=== PATIENT | female | born 1955 | race American Indian/Alaskan Native ===

== ENCOUNTER 2023-10-31 17:09 | Inpatient (IN) ==
[2023-10-31] MEDS ORDERED: IOPAMIDOL 100 ML BOTTLE IV ONE (17:24)
[2023-10-31] MEDS: IPRATROPIUM/ALBUTEROL 3 ML AMPUL.NEB NEB ONE ×3 (17:25→21:00)
[2023-10-31] MEDS: methylPREDNISolone SOD SUCC 125 MG/2 ML VIAL IV ONE (17:32)
[2023-10-31 18:33] LABS: ABG Methemoglobin 0.1 % (0.4-1.5); Total Hemoglobin 15.3 gm/Dl (12.0-15.0); VBG Base Excess -3 (-2-3); VBG HCO3 21.8 mmol/L (24.0-28.0); VBG Oxygen Saturation 90.7 % (40.0-70.0); VBG PCO2 36.6 mmHg (41.0-51.0); VBG PH 7.39 U (7.32-7.42); VBG PO2 69.7 mmHg (25.0-40.0); VBG Total CO2 22.9 mmol/L (25.0-29.0)
[2023-10-31 18:37] LABS: Basophils # (Auto) 0.01 K/mcL (0.00-0.30); Basophils % (Auto) 0.1 % (0.0-2.0); Eosinophils # (Auto) 0 K/mcL (0.00-0.70); Eosinophils % (Auto) 0 % (0.0-7.0); Hematocrit 41.6 % (34.1-44.9); Hemoglobin 14.2 g/dL (11.2-15.7); Lymphocytes # (Auto) 0.85 K/mcL (1.50-4.80); Lymphocytes % (Auto) 9.8 % (15.5-49.0); Mean Corpuscular HGB Conc 34.1 g/dL (31.0-36.0); Mean Platelet Volume 8.4 fL (8.8-12.5); Monocytes # (Auto) 0.57 K/mcL (0.10-0.90); Monocytes % (Auto) 6.6 % (1.0-12.0); Neutrophils % (Auto) 83.3 % (38.0-78.0); Platelet Count 333 K/mcL (140-440); RBC 4.16 M/mcL (3.59-5.38); Red Cell Distribution Width 13.4 % (11.5-14.5); WBC 8.7 K/mcL (4.5-11.0)
[2023-10-31] MEDS: HYDROmorphone 0.5 MG/0.5 ML SYRINGE IV ONE (18:46)
[2023-10-31 18:58] LABS: ALT/SGPT 34 U/L (<40); AST/SGOT 36 U/L (<32); Albumin 4.5 gm/dL (3.2-5.2); Albumin/Globulin Ratio 1.4 (1.0-2.3); Alkaline Phosphatase 65 U/L (39-117); Bilirubin,Total 0.5 mg/dL (0.1-1.0); Blood Urea Nitrogen 19 mg/dL (8-23); Calcium 9.5 mg/dL (8.6-10.4); Carbon Dioxide 20 mmol/L (22-30); Chloride 100 mmol/L (96-108); Globulin 3.2 gm/dL (2.2-3.7); Glomerular Filtration Rate 90; Glucose 141 mg/dL (70-105)
[2023-10-31] MEDS: cefTRIAXone 2 GM in DEXTROSE 5% IN WATER 50 ML IV ONE (20:29)
[2023-10-31] MEDS: AZITHROMYCIN 500 MG in DEXTROSE 5% IN WATER 250 ML IV ONE (21:01)
[2023-10-31] MEDS ORDERED: SENNOSIDES 1 TABLET PO PRN (21:56)
[2023-10-31] MEDS ORDERED: POTASSIUM CHLORIDE 20 MEQ TABLET PO PRN (21:56)
[2023-10-31] MEDS ORDERED: ONDANSETRON 4 MG/2 ML VIAL IV PRN (21:56)
[2023-10-31] MEDS ORDERED: POLYETHYLENE GLYCOL 3350 17 GM PACKET PO PRN (21:56)
[2023-10-31] MEDS ORDERED: MAGNESIUM SULFATE 2 GM/50 ML BAG IV PRN (21:56)
[2023-10-31] MEDS ORDERED: POTASSIUM CHLORIDE 40 MEQ in DEXTROSE 5% IN WATER 500 ML IV PRN (21:56)
[2023-10-31] MEDS: BUDESONIDE 0.5 MG/2 ML AMPUL.NEB NEB SCH (22:20)
[2023-10-31] MEDS: IPRATROPIUM/ALBUTEROL 3 ML AMPUL.NEB NEB PRN (22:20)
[2023-10-31] MEDS: POTASSIUM CHLORIDE 20 MEQ TABLET PO PRN (22:30)
[2023-10-31] MEDS: BUDESONIDE 0.5 MG/2 ML AMPUL.NEB ONE (22:34)
[2023-10-31] MEDS: methylPREDNISolone SOD SUCC 125 MG/2 ML VIAL IV SCH (22:45)
[2023-10-31] MEDS: ACETAMINOPHEN 325 MG TABLET PO PRN (22:45)
[2023-10-31] MEDS: HYDROcodone/APAP 5/325MG TABLET PO PRN (23:11)
[2023-11-01] MEDS: HYDROcodone/APAP 5/325MG TABLET PO ONE (00:02)
[2023-11-01] MEDS: IPRATROPIUM/ALBUTEROL 3 ML AMPUL.NEB NEB SCH (01:06)
[2023-11-01] MEDS: LORazepam 2 MG/ML VIAL IV PRN (02:02)
[2023-11-01] MEDS ORDERED: DEXTROSE 31 GM ORAL.SUSP PO PRN (07:41)
[2023-11-01] MEDS ORDERED: DEXTROSE 50% 50 ML VIAL IV PRN (07:41)
[2023-11-01] MEDS: HYDROcodone/APAP 5/325MG TABLET PO PRN (08:20)
[2023-11-01] MEDS: GABAPENTIN 300 MG CAPSULE PO SCH (08:20)
[2023-11-01] MEDS: LOSARTAN 50 MG TABLET PO SCH (08:21)
[2023-11-01] MEDS: HYDROXYCHLOROQUINE 200 MG TABLET PO SCH (08:21)
[2023-11-01] MEDS: DOCUSATE SODIUM 100 MG CAPSULE PO SCH (08:21)
[2023-11-01] MEDS: cefTRIAXone 1 GM VIAL IV SCH (08:22)
[2023-11-01] MEDS: ENOXAPARIN 40 MG/0.4 ML SYRINGE SQ SCH (08:22)
[2023-11-01] MEDS: azaTHIOprine 50 MG TABLET PO SCH (08:22)
[2023-11-01] MEDS: AZITHROMYCIN 500 MG in DEXTROSE 5% IN WATER 250 ML IV SCH (08:26)
[2023-11-01] MEDS: NEUTRA PHOS 1 PACKET PO SCH (09:57)
[2023-11-01] MEDS: PHOSPHORUS 250 MG TABLET PO SCH (09:57)
[2023-11-01 11:35] LABS: ALT/SGPT 24 U/L (<40); AST/SGOT 28 U/L (<32); Albumin 4.1 gm/dL (3.2-5.2); Albumin/Globulin Ratio 1.4 (1.0-2.3); Alkaline Phosphatase 59 U/L (39-117); Anion Gap 12.9 (8.0-16.0); Bilirubin,Direct < 0.2 mg/dL (0-0.3); Bilirubin,Total 0.3 mg/dL (0.1-1.0); Blood Urea Nitrogen 18 mg/dL (8-23); Carbon Dioxide 23 mmol/L (22-30); Chloride 102 mmol/L (96-108); Globulin 2.9 gm/dL (2.2-3.7); Glomerular Filtration Rate 93; Glucose 209 mg/dL (70-105); Lactate Dehydrogenase 255 U/L (135-225); Triglycerides 84 mg/dL (<150); Uric Acid 4.5 mg/dL (2.5-8.0)
[2023-11-01] MEDS: INSULIN LISPRO 1 UNIT/0.01 ML UNIT SQ SCH (11:51)
[2023-11-01] MEDS: methylPREDNISolone SOD SUCC 40 MG/ML VIAL IV SCH (14:13)
[2023-11-02 06:57] LABS: ALT/SGPT 30 U/L (<40); AST/SGOT 33 U/L (<32); Albumin/Globulin Ratio 1.5 (1.0-2.3); Alkaline Phosphatase 66 U/L (39-117); Bilirubin,Direct < 0.2 mg/dL (0-0.3); Bilirubin,Total 0.5 mg/dL (0.1-1.0); Blood Urea Nitrogen 20 mg/dL (8-23); Calcium 8.7 mg/dL (8.6-10.4); Carbon Dioxide 24 mmol/L (22-30); Chloride 103 mmol/L (96-108); Globulin 2.7 gm/dL (2.2-3.7); Glomerular Filtration Rate 100; Glucose 126 mg/dL (70-105); Lactate Dehydrogenase 245 U/L (135-225); Phosphorous 3.4 mg/dL (2.5-4.5); Triglycerides 141 mg/dL (<150); Uric Acid 3.3 mg/dL (2.5-8.0)
[2023-11-02] MEDS: AZITHROMYCIN 250 MG TABLET PO SCH (08:37)
[2023-11-02] MEDS: predniSONE 20 MG TABLET PO SCH (08:37)
[2023-11-02] MEDS: LEVALBUTEROL 1.25 MG/3 ML AMPUL.NEB NEB PRN (09:14)
[2023-11-02] MEDS ORDERED: ALBUTEROL SULFATE 60 PUFF INHALER INH PRN (10:25)
[2023-11-02] MEDS ORDERED: BENZONATATE 100 MG CAPSULE PO PRN (10:25)
[2023-11-02] MEDS ORDERED: HYDROcodone/APAP (PP) 5/325MG TABLET (#4) PO PRN (10:25)
[2023-11-02] MEDS: guaiFENesin/DEXTROMETHORPHAN 5ML UD CUP PO PRN (11:44)
[2023-11-02] MEDS: CALCIUM (OYSTER SHELL) 500 MG TABLET PO SCH (12:41)
[2023-11-02] MEDS: NYSTATIN CRM 1 DOSE TUBE TOPICAL SCH (20:42)
[2023-11-03 06:47] LABS: Basophils # (Auto) 0 K/mcL (0.00-0.30); Basophils % (Auto) 0 % (0.0-2.0); Eosinophils # (Auto) 0.02 K/mcL (0.00-0.70); Eosinophils % (Auto) 0.4 % (0.0-7.0); Hematocrit 39.4 % (34.1-44.9); Lymphocytes # (Auto) 2.23 K/mcL (1.50-4.80); Lymphocytes % (Auto) 39.1 % (15.5-49.0); Mean Cell Volume 103.4 fL (80.0-100.0); Mean Platelet Volume 8.7 fL (8.8-12.5); Monocytes # (Auto) 0.53 K/mcL (0.10-0.90); Monocytes % (Auto) 9.3 % (1.0-12.0); Neutrophils % (Auto) 50.5 % (38.0-78.0); Platelet Count 314 K/mcL (140-440); RBC 3.81 M/mcL (3.59-5.38); Red Cell Distribution Width 13.6 % (11.5-14.5); WBC 5.7 K/mcL (4.5-11.0)
[2023-11-03 07:13] LABS: ALT/SGPT 38 U/L (<40); AST/SGOT 33 U/L (<32); Albumin 3.7 gm/dL (3.2-5.2); Albumin/Globulin Ratio 1.4 (1.0-2.3); Alkaline Phosphatase 71 U/L (39-117); Bilirubin,Total 0.4 mg/dL (0.1-1.0); Blood Urea Nitrogen 17 mg/dL (8-23); Calcium 8.3 mg/dL (8.6-10.4); Carbon Dioxide 25 mmol/L (22-30); Chloride 104 mmol/L (96-108); Globulin 2.6 gm/dL (2.2-3.7); Glomerular Filtration Rate 95; Glucose 98 mg/dL (70-105)
[2023-11-03] MEDS: HYDROCHLOROTHIAZIDE 25 MG TABLET PO SCH (08:24)
[2023-11-03] MEDS: MULTIVIT,THER IRON,CA,FA & MIN 1 TABLET PO SCH (08:25)
[2023-11-04] MEDS ORDERED: ERGOCALCIFEROL (VITAMIN D2) 50,000 UNIT CAPSULE PO SCH (08:00)
== END 2023-11-03 12:50 | DRG 190 ==
LOC: ED 17:09 → ICU 21:58 → MEDSUR 11-01 14:46
PROVIDERS: ADMIT Internal Medicine; ATTEND Internal Medicine